=== PATIENT | female | born 1975 | race Two or more races ===

== ENCOUNTER 2023-11-01 14:54 | Emergency (ER) | payer OTHER, SELFPAY ==
[2023-11-01 15:00] VITALS: BP 168/108
[2023-11-01 15:56] VITALS: BP 170/88
[2023-11-01 16:00] VITALS: BP 160/97
[2023-11-01 17:00] VITALS: BP 163/94
[2023-11-01 17:24] LABS: % Basophils 0.5 % (0-2); % Eosinophils 0.2 % (0-6); % Immature Granulocytes 0.4 % (0-0.5); % Lymphocytes 10.9 % (20.5-51.1); Absolute Basophils 0.1 10^3/uL (0-0.2); Absolute Immature Granulocytes 0.1 10^3/uL (0-0.05); Absolute Lymphocytes 1.6 10^3/uL (1.2-3.4); Absolute Monocytes 0.7 10^3/uL (0.1-0.6); Absolute Neutrophils 12.3 10^3/uL (1.4-6.5); Hematocrit 36.2 % (37.0-47.0); Hemoglobin 12.9 g/dL (12.0-16.0); Mean Corp Hgb Conc. 35.6 g/dL (33.0-37.0); Mean Corpuscular Hgb 28.1 pg (27.0-31.0); Mean Corpuscular Volume 78.9 fL (81.0-99.0); Mean Platelet Volume 10.1 fL (7.4-10.4); Nucleated Red Blood Cells % 0 %; Platelet Count 333 10^3/uL (130-400); Red Blood Cell Count 4.59 10^6/uL (4.20-5.40); Red Cell Dist. Width 12.4 % (11.5-14.5); White Blood Cell Count 14.8 10^3/uL (4.8-10.8)
--- NOTE | 2023-11-01 17:42 | ED.GENMED ---
History of Present Illness
General
Chief Complaint: Blood Pressure Problem
Source: patient and family
Time Seen by Provider: 11/01/23 16:55
Travel History
Have you had any contact with someone who has COVID-19?: No
Do you have any symptoms of coronavirus? Fever > 100 degrees, chills, cough, shortness of breath, sore throat, loss of taste or smell, muscle aches, or headache?: No
History of Present Illness
History of Present Illness:
47-year-old female presenting to the emergency department for evaluation after she started to feel lightheaded, shaky and some tingling on her right upper arm while having a discussion with family. Patient reports that the discussion was a little
upsetting when all of the symptoms started. Patient felt as if her blood pressure were elevated so she decided to come to the ER for further evaluation. On arrival to the emergency department patient reports symptoms are mostly resolved and at
time of my exam patient states that symptoms are now fully resolved. She denies any headaches, visual changes, focal weakness or numbness, chest pain or shortness of breath, abdominal pain, nausea, vomiting. Of note, patient reports that she had
an appointment with her primary care physician about 2 months ago for routine visit when it was noted her blood pressure at the time was around 150 systolically. Patient states that the primary care doctor wanted to follow-up with the patient in
about 2 months to recheck her blood pressure but has yet to make this follow-up visit.
Past History
Past History
ED Past Medical History: None
ED Past Surgical History: None
Social History
Tobacco: Non-smoker
Alcohol: None
Drug: None
Personal:
Living: with family
Review of Systems
Review of Systems
All Other Systems: ROS reviewed and negative except as documented in HPI and ROS
Phy Exam
Physical Exam
Physical Exam:
GENERAL: Alert , in no apparent distress
EYE: conjunctiva clear
NECK: Supple
ENT: o/p clr, mmm.
CARDIAC: Regular rate and rhythm, no murmur
LUNGS: Clear breath sounds bilaterally, no acute respiratory distress, no wheezes/rales/rhonchi
NEUROLOGICAL: Alert and oriented x 3, moves all extremities, ambulatory with steady gait
SKIN: Warm and dry, skin intact.
MUSCULOSKELETAL: well perfused.
PSYCH: Normal and appropriate interaction.
Scores
Heart Failure Risk
Heart Failure Risk Score: Not Applicable
Heart Score for Chest Pain Patients
STEMI patient?: Not applicable
Withdrawal Assessment of Alcohol
Withdrawal Assessment Completed?: Not applicable
Course
Orders/Labs/Results
Orders:
Orders
11/01/23 15:03
EKG [Electrocardiogram (*1)] Urgent
Reason for Study: Hypertension, Benign
EKG- Treatment ONCE
11/01/23 17:15
Complete Blood Count/With Diff Urgent
Comprehensive Metabolic Panel Urgent
Troponin I Urgent
Abnormal Lab Results
11/01/23
17:15
WBC 14.8 H 10^3/uL
(4.8-10.8)
Hct 36.2 L %
(37.0-47.0)
MCV 78.9 L fL
(81.0-99.0)
Abs Immat Gran (auto) 0.1 H 10^3/uL
(0-0.05)
Absolute Neuts (auto) 12.3 H 10^3/uL
(1.4-6.5)
Absolute Monos (auto) 0.7 H 10^3/uL
(0.1-0.6)
Neutrophils % 83.0 H %
(42.2-75.2)
Lymphocytes % 10.9 L %
(20.5-51.1)
BUN 5 L mg/dl
(7-17)
Creatinine 0.5 L mg/dL
(0.6-1.0)
Glucose 109 H mg/dl
(70-99)
Calcium 10.3 H mg/dl
(8.4-10.2)
11/01/23 17:15
11/01/23 17:15
Vital Signs
Initial and Last Documented VS:
Initial Vital Signs
Temp Pulse Resp BP Pulse Ox
98.7 F 113 18 168/108 100
11/01/23 15:00 11/01/23 15:00 11/01/23 15:00 11/01/23 15:00 11/01/23 15:00
Last Documented Vital Signs
Temp Pulse Resp BP Pulse Ox
98.7 F 94 18 159/81 100
11/01/23 15:00 11/01/23 17:57 11/01/23 17:50 11/01/23 18:00 11/01/23 18:00
MDM/Problems Addressed
Differential Diagnosis Includes:
Hypertensive urgency, uncontrolled hypertension atypical ACS presentation, anxiousness secondary to conversation occurring with family at time of symptom onset
MDM/Problems Addressed:
47-year-old female presenting to the ER for evaluation of anxiousness/tingling sensation/right upper extremity paresthesia. Patient noted blood pressure elevated however had elevated blood pressure at primary care provider 2 months ago so my
suspicion is patient likely has chronically elevated blood pressure but is currently not managed as she has yet to follow-up with her primary care physician for this. Patient reports at present time she is asymptomatic. Her blood pressure on my
exam was 158/90. Will check labs including troponin however I am not very suspicious for an atypical ACS presentation. Anticipate discharge following close follow-up with primary care for blood pressure monitoring
*Pulse Oximetry
Patient hypoxic: no
*EKG
Interpreted by ED Provider?: Yes
Heart Rate: 119
Rate: tachycardiac
Rhythm: sinus
[place]: normal axis
*Critical Care Note
Total Time (30-74mins, 75-104mins- exclusive of procedures): Not Applicable
Patient Management
Escalation/DeEscalation of care consider admission/obs:
Patient's vital signs much improved. She remains asymptomatic. On labs she does have a nonspecific leukocytosis. There is no signs or symptoms of infection. Advise close follow-up with primary care provider. Patient expressed understanding and
is otherwise stable for discharge home.
ED Attending Note
-
Portions of this chart may have been created with voice recognition software.� Occasional wrong word or��sound alike� substitutions may have occurred due to the inherent limitations of voice recognition software.
Discharge Plan
Departure
Patient Disposition: Home (Routine Discharge)
Date of Disposition: 11/01/23
Time of Disposition: 17:59
Patient with high blood pressure during this ER visit?: Yes
Discharge Problem:
Elevated blood pressure reading
Instructions: High Blood Pressure (DC)
Interventions
Interventions:
*Risk Screen - Suicide Last Done: 11/01/23 16:05
*General Assessment Last Done: 11/01/23 15:00
*Neglect/Abuse Screening Last Done: 11/01/23 15:58
ED- Fall Risk Assessment Last Done: 11/01/23 16:05
*ED COVID-19 Vaccine History Last Done: 11/01/23 15:00
*Nursing Disposition Last Done: 11/01/23 18:05
ED- Cardiac Assessment Last Done: 11/01/23 16:05
ED- Neurological Assessment Last Done: 11/01/23 16:05
ED- Pulmonary Assessment Last Done: 11/01/23 16:05
Discharge Date and Time
Discharge Date/Time: 11/01/23 18:18
Print Language: FAROESE
[2023-11-01 17:47] LABS: ALT (SGPT) 13 U/L (0-35); AST (SGOT) 26 U/L (14-36); Albumin 4.5 g/dl (3.5-5.0); Alkaline Phosphatase 47 U/L (38-126); Blood Urea Nitrogen 5 mg/dl (7-17); Calcium 10.3 mg/dl (8.4-10.2); Carbon Dioxide 24 mmol/L (22-30); Chloride 105 mmol/L (98-107); Glucose 109 mg/dl (70-99); Potassium 4.4 mmol/L (3.5-5.1); Sodium 137 mmol/L (135-145); Total Bilirubin 0.4 mg/dl (0.2-1.3); Total Protein 7.5 g/dl (6.3-8.2); eGFR > 60.00
[2023-11-01 17:52] LABS: Troponin I < 0.012 ng/ml
[2023-11-01 18:00] VITALS: BP 159/81
== END 2023-11-01 18:18 | disposition home or self-care (01) ==
LOC: EMR 14:54
PROVIDERS: Physician Assistant Medical; EMERGENCY PHYSICIAN Emergency Medicine; FAMILY PHYSICIAN Family Medicine
DX: R03.0 Elevated blood-pressure reading, without diagnosis of hypertension (principal)
CPT/HCPCS: 99283; 80053; 84484; 85025; 93005